=== PATIENT | male | born 1930 | race Caucasian/White ===

== ENCOUNTER 2016-03-29 12:56 | Outpatient (CLI) | payer MEDICARE ==
[2016-03-29 14:26] LABS: Prothrombin Time 33.1 SEC (12.0-14.7)
== END 2016-03-29 12:57 | disposition home or self-care (01) ==
LOC: NAV LAB 12:56
PROVIDERS: ATTEND Internal Medicine Cardiovascular Disease
DX: E78.5 Hyperlipidemia, unspecified (principal); I48.0 Paroxysmal atrial fibrillation; I10 Essential (primary) hypertension
CPT/HCPCS: 36415; 85610

== ENCOUNTER 2016-05-12 13:26 | Outpatient (CLI) | payer MEDICARE ==
[2016-05-12 14:26] LABS: Prothrombin Time 30.5 SEC (12.0-14.7)
== END 2016-05-12 13:27 | disposition home or self-care (01) ==
LOC: NAV LAB 13:26
PROVIDERS: ATTEND Internal Medicine Cardiovascular Disease
DX: I48.0 Paroxysmal atrial fibrillation (principal); E78.5 Hyperlipidemia, unspecified; I10 Essential (primary) hypertension
CPT/HCPCS: 36415; 85610

== ENCOUNTER 2016-07-14 13:29 | Outpatient (CLI) | payer MEDICARE ==
[2016-07-15 06:14] LABS: INR-International Normal Ratio 2.3
== END 2016-07-14 13:30 | disposition home or self-care (01) ==
LOC: NAV LAB 13:29
PROVIDERS: ATTEND Internal Medicine Cardiovascular Disease
DX: I48.0 Paroxysmal atrial fibrillation (principal); I10 Essential (primary) hypertension; E78.5 Hyperlipidemia, unspecified
CPT/HCPCS: 36415; 85610

== ENCOUNTER 2016-09-01 14:08 | Outpatient (CLI) | payer MEDICARE ==
[2016-09-01 14:52] LABS: INR-International Normal Ratio 2.8; Prothrombin Time 30.6 SEC (12.0-14.7)
== END 2016-09-01 14:09 | disposition home or self-care (01) ==
LOC: NAV LAB 14:08
PROVIDERS: ATTEND Internal Medicine Cardiovascular Disease
DX: I48.0 Paroxysmal atrial fibrillation (principal); E78.5 Hyperlipidemia, unspecified; I10 Essential (primary) hypertension
CPT/HCPCS: 36415; 85610

== ENCOUNTER 2016-09-03 11:06 | Emergency (ER) | payer MEDICARE ==
[2016-09-03] MEDS ORDERED: Adacel (T-DAP) 0.5 ML VIAL ONE (13:15)
[2016-09-03] MEDS ORDERED: cefTRIAXone\\ROCEPHIN 2 GM VIAL ONE (13:16)
[2016-09-03] MEDS ORDERED: Sodium Chloride 0.9% 100 ML ONE (13:18)
[2016-09-03] MEDS ORDERED: methylPREDNISolone Sod Succ/PF 125 MG/2 ML VIAL ONE (13:23)
[2016-09-03] MEDS ORDERED: diphenhydrAMINE HCl 50 MG/ML 1 ML VIAL ONE (13:24)
[2016-09-03] MEDS ORDERED: Famotidine/PF 20 mg/2ml Vial ONE (13:25)
[2016-09-03] MEDS ORDERED: Sodium Chloride 0.9% 250 ML 250 ML ONE (13:26)
[2016-09-03 13:37] LABS: #Basophils 0.1 thou/uL (0.0-0.2); #Eosinphils 0.4 thou/uL (0.0-0.7); #Monocytes 0.8 thou/uL (0.11-0.59); #Neutrophils 6.2 thou/uL (1.40-6.50); %Basophils 0.8 % (0.0-1.0); %Eosinophils 4.2 % (0.0-10.0); %Lymphocytes 21.2 % (21.0-51.0); %Monocytes 8.2 % (0.0-10.0); %Neutrophils 65.6 % (42.0-75.0); Hemoglobin 16.1 g/dL (14.0-18.0); Mean Corpuscular HGB CONC 33.1 g/dL (32.0-36.0); Mean Corpuscular Hemoglobin 32.6 pg (27.0-31.0); Mean Corpuscular Volume 98.5 fl (80.0-94.0); Mean Platelet Volume 7.4 fL (7.4-10.4); Platelet Count 200 thou/uL (130-400); Red Blood Cell (RBC) Count 4.93 mill/uL (4.70-6.10); White Blood Cell (WBC) Count 9.4 thou/uL (4.8-10.8)
[2016-09-03 13:54] LABS: Anion Gap 18 mmol/L (10-20); BUN (Urea Nitrogen) 27 mg/dL (8.4-25.7); Calc. Creatinine Clearance 0 mL/min (70-130); Calcium 9.9 mg/dL (7.8-10.44); Carbon Dioxide 22 mmol/L (23-31); Chloride 102 mmol/L (98-107); Estimated GFR-MDRD 56; Glucose 97 mg/dL (83-110); Potassium 3.7 mmol/L (3.5-5.1); Sodium 138 mmol/L (136-145)
== END 2016-09-03 14:26 | disposition home or self-care (01) ==
LOC: NAV ERS 11:06
DX: S60.561A Insect bite (nonvenomous) of right hand, initial encounter (principal); L03.113 Cellulitis of right upper limb; I25.10 Atherosclerotic heart disease of native coronary artery without angina pectoris; I10 Essential (primary) hypertension; Z79.82 Long term (current) use of aspirin; Z79.899 Other long term (current) drug therapy; Z79.01 Long term (current) use of anticoagulants; Z23 Encounter for immunization; Z95.0 Presence of cardiac pacemaker; W57.XXXA Bitten or stung by nonvenomous insect and other nonvenomous arthropods, initial encounter
CPT/HCPCS: 36415; 80048; 85025; 90471; 90715; 96365; 96375; J0696; J1200; J2930; J7050; S0028

== ENCOUNTER 2016-10-27 12:05 | Outpatient (CLI) | payer MEDICARE ==
[2016-10-27 13:21] LABS: INR-International Normal Ratio 2.9; Prothrombin Time 31.9 SEC (12.0-14.7)
[2016-10-27 14:23] LABS: Follow-up Coag Comp? YES; Follow-up Result - Coag REPORT FAXED
== END 2016-10-27 12:06 | disposition home or self-care (01) ==
LOC: NAV LAB 12:05
PROVIDERS: ATTEND Internal Medicine Cardiovascular Disease
DX: I48.0 Paroxysmal atrial fibrillation (principal); E78.5 Hyperlipidemia, unspecified; I10 Essential (primary) hypertension
CPT/HCPCS: 36415; 85610

== ENCOUNTER 2016-12-14 12:38 | Outpatient (CLI) | payer MEDICARE ==
[2016-12-14 13:16] LABS: INR-International Normal Ratio 2.8; Prothrombin Time 30.3 SEC (12.0-14.7)
== END 2016-12-14 12:39 | disposition home or self-care (01) ==
LOC: NAV LAB 12:38
PROVIDERS: ATTEND Internal Medicine Cardiovascular Disease
DX: I48.0 Paroxysmal atrial fibrillation (principal)
CPT/HCPCS: 36415; 85610

== ENCOUNTER 2017-04-12 13:31 | Outpatient (CLI) | payer MEDICARE ==
[2017-04-12 13:56] LABS: INR-International Normal Ratio 2.2
[2017-04-12 14:01] LABS: Follow-up Coag Comp? YES
== END 2017-04-12 13:32 | disposition home or self-care (01) ==
LOC: NAV LAB 13:31
PROVIDERS: ATTEND Internal Medicine Cardiovascular Disease
DX: I48.0 Paroxysmal atrial fibrillation (principal)
CPT/HCPCS: 36415